=== PATIENT | female | born 1960 | race Caucasian/White ===

== ENCOUNTER 2024-12-24 10:49 | Outpatient (OUT) | payer MEDICARE, SELFPAY ==
--- OUTSIDE RECORDS SUMMARY | 2024-12-24 10:52 | XMS_ITS | Clinical Summary ---
Author Organization [facility] Address [address] [place] [address] Care Team Providers Care Director Of Counterintelligence Name Role Phone Darling Gannon MD Primary Care Provider [phone] Vanessa Yip MD Unavailable [phone] Darling Gannon MD Unavailable Allergies Active AllergyReactionsCriticalityNoted QjmkTaehonpxRwzjlnwkhslz65/14/2023 Other Reaction(s): Unknown PcaopGvomCto50/14/2023LevofloxacinGI sowytwmqpqqBqzicm31/07/2025 Medications MedicationSigDispense QuantityRefillsLast FilledStart DateEnd DateStatus aspirin 81 MG EC tablet 1 (one) time each day at the same time.Active nitroglycerin (Nitrostat) 0.4 MG SL tablet as directed Sublingual as neededActive ezetimibe (Zetia) 10 MG tablet Indications:Mixed hyperlipidemiaTake 1 tablet (10 mg) by mouth in the morning. 90 tablet 4Active famotidine (Pepcid) 20 MG tablet Indications:LPRD (laryngopharyngeal reflux disease)Take 1 tablet (20 mg) by mouth at bedtime 100 tablet 4Active Cjdyvgu-Qqtwzcxiswx-Gtzdqraatt (Breztri Aerosphere) 160-9-4.8 MCG/ACT aerosol Indications:Chronic obstructive pulmonary disease, unspecified COPD type (HCC) Inhale 2 puffs in the morning and 2 puffs before bedtime. 10.7 g 5Active amLODIPine (Norvasc) 2.5 MG tablet Indications:Primary hypertensionTake 1 tablet (2.5 mg) by mouth Daily 100 tablet 5Active triamcinolone (Kenalog) 0.1 % cream Indications:Eczema, unspecified typeApply topically in the morning and before bedtime. Apply to affected area 1-2 times daily as needed. 15 g 5Active pantoprazole (ProtoNix) 40 MG EC tablet Indications:Gastroesophageal reflux disease without esophagitisTAKE 1 TABLET (40 MG) BY MOUTH IN THE MORNING. TAKE BEFORE MEALS. 100 tablet 5Active ALPRAZolam (Xanax) 0.5 MG tablet Indications:Primary insomniaTake 1 tablet (0.5 mg) by mouth as needed at bedtime for anxiety 90 tablet 515Active traZODone (Desyrel) 150 MG tablet Indications:Insomnia associated with menopauseTAKE 1.5 TABLETS (225 MG) BY MOUTH AT BEDTIME 135 tablet 5Active Active Problems ProblemNoted DateDiagnosed DateStatin augjapfxsog18/07/6992Lizbjtx95/12/2024 Jpphaode32/12/2024outine general medical examination at health care facility 07/29/2023 Assessment & Plan (07/26/2024 2:44 PM EDT): Colonoscopy every 10 years or Cologuard every 3 years ages 50-75 Flu Vaccine yearly Pneumovax and Prevnar Mammo yearly for women and PSA yearly for men Labs/Screening yearly to rule out Diabetes, Chronic Kidney disease and liver disease Hepatitis Screen forat risk populations Shingles vaccine after65 if indicated Tetanus Vaccine every 10 years Lipids yearly under the age of 75 If Smoking history: one time CT scan of chest and Ultrasound of Aorta to screen for Anuerysm Assessment & Plan (07/29/2023 2:31 PM EDT): Colonoscopy every 10 years or Cologuard every 3 years ages 50-75 Flu Vaccine yearly Pneumovax and Prevnar Mammo yearly for women and PSA yearly for men Labs/Screening yearly to rule out Diabetes, Chronic Kidney disease and liver disease Hepatitis Screen forat risk populations Shingles vaccine after65 if indicated Tetanus Vaccine every 10 years Lipids yearly under the age of 75 If Smoking history: one time CT scan of chest and Ultrasound of Aorta to screen for Anuerysm Atherosclerosis of aorta07/29/2023 Assessment & Plan (07/29/2023 2:31 PM EDT): Found on imaging, no current complaints LPRD (laryngopharyngeal reflux disease)04/23/2023Throat pain in adult03/31/2023 Assessment & Plan (03/31/2023 2:52 PM EST): Does have severe reflux Refer to ENT probably needs laryngoscopy Age related tvdlgcbxanpf95/31/7830Wnthuya41/31/2023 Assessment & Plan (07/26/2024 2:43 PM EDT): Patient's Medicine is effective at controlling symptoms at current dose and frequency. PDMP reviewed with no evidence of overuse and abuse D/W patient to avoid use of benzodiazepines when consuming alcohol Advised against operating heavy machinery and driving long distances while on medicines. Wewjjtazrwhw69/31/2023Elevated liver fkxnqzv7007/10/2022 Assessment & Plan (07/26/2024 2:50 PM EDT): Recheck next year Was 46 last year Consider US Fatty liver07/10/2022astroesophageal reflux disease without esophagitis 07/10/2022eneralized kdybwahbomtcgn33/31/2023History of non-ST elevation myocardial infarction (NSTEMI)07/10/2022Impaired fasting lkwgimr3407/10/2022Mixed yxydqibzdcwsbk69/31/2023 Assessment & Plan (07/26/2024 2:43 PM EDT): This is a chronic medical condition that is stable since last assessment. No changes in treatment are suggested at this time. Continue Current meds. Nonalcoholic steatohepatitis (REEDER)07/10/2022ain in female genitalia on xqxtvaevzuj64/31/2023rimary damoimbpbjtg96/31/2023 Assessment & Plan (07/26/2024 2:43 PM EDT): Our specific goals, for your hypertension, is to keep your blood pressure less than 140/90, and theimportance of weight control. We made recommendations on how to control your blood pressure, and minimize your risk of these copmplications. We also discussed your current barriers to a healthy living and importance of healthy diet and exercise. Prior to your visit today we have reviewed your chart and formed a plan to assist with providing you the best possible care. We reviewed the possible complications of hypertension including, stroke, heart failure and kidney impairment. In addition, we discussed your medications, the importance of taking them as prescribed. DASH diet handouts Assessment & Plan (01/26/2024 2:34 PM EST): Our specific goals, for your hypertension, is to keep your blood pressure less than 140/90, and theimportance of weight control. We made recommendations on how to control your blood pressure, and minimize your risk of these copmplications. We also discussed your current barriers to a healthy living and importance of healthy diet and exercise. Prior to your visit today we have reviewed your chart and formed a plan to assist with providing you the best possible care. We reviewed the possible complications of hypertension including, stroke, heart failure and kidney impairment. In addition, we discussed your medications, the importance of taking them as prescribed. DASH diet handouts Primary /31/2023 Assessment & Plan (03/31/2023 2:46 PM EST): Patient's Medicine is effective at controlling symptoms at current dose and frequency. PDMP reviewed with no evidence of overuse and abuse D/W patient to avoid use of benzodiazepines when consuming alcohol Advised against operating heavy machinery and driving long distances while on medicines. Assessment & Plan (11/26/2022 1:35 PM EDT): Patient's Medicine is effective at controlling symptoms at current dose and frequency. PDMP reviewed with no evidence of overuse and abuse D/W patient to avoid use of benzodiazepines when consuming alcohol Advised against operating heavy machinery and driving long distances while on medicines. Sensorineural hearing loss, asveyxonr45/31/2023hronic kidney disease, stage 3a 07/10/2022 Assessment & Plan (03/31/2023 2:46 PM EST): Increase fluids and repeat labs Status post fdaqmhazfzig45/31/2023Vaginal sqkizjs5207/10/20223370Ctitcyjx99/11/2023 Ankle swelling, right02/20/20220890Pzfcywjlm67/11/2023ack pain02/20/2022hronic jdpwuwdg70/11/2023hronic obstructive pulmonary disease, mbepgvyxjfm65/11/2023 Assessment & Plan (07/29/2023 2:31 PM EDT): This is a chronic medical condition that is stable since last assessment. No changes in treatment are suggested at this time. Continue Current meds. Assessment & Plan (03/31/2023 2:46 PM EST): Uses Breztri Ccmgylgokb82/11/3207Uvdpkz84/11/2023Hearing loss02/20/2022 Overview (03/31/2023): bilat hearing aids Uhyffqfv87/11/2023Sleep apnea02/20/2022 Overview (03/31/2023): does not wear cpap Lnydiwjvy64/11/2023Visual /11/2023Liver jusjqyi6902/20/2022cute coronary ombidrls64/21/2021 Overview (03/31/2023): Added automatically from request for surgery [id number] Contusion to heart08/30/2020Heart tjrklc5108/29/2020ltered mental status 09/19/20129006Xmwzllhzjbgkdos54/10/2013 Encounters DateTypeDepartmentCare BnzuBftcnefqeeu34/15/2025Telephone [facility] [address] [place] [phone] Darling Gannon MD 11/15/2024Refill [facility] [address] [place] [phone] Karen Hightower LPN Insomnia associated with xngenhwpj53/22/2025Refill [facility] [address] [place] [address] Yaneli Neal PA Primary insomniafrom Last 3 Months Immunizations ImmunizationAdministration DatesNext DuePneumococcal Conjugate PCV Family History Medical HistoryRelationNameCommentsHemochromatosisFatherHypertensionMotherMother RelationNameStatusCommentsBrother1 brotherFatherDeceasedMaternal Grandfather DeceasedMotherMotherAlivePaternal GrandmotherDeceasedSister1 sister Social History Tobacco UseTypesPacks/DayYears UsedDateSmoking Tobacco: FormerCigarettes0.35.2 Quit: 02/10/1986Smokeless Tobacco: Never Tobacco Cessation:Counseling Given: Not Answered Comments:Former smoker x 15 years Alcohol UseStandard Drinks/WeekCommentsNot Currently0 (1 standard drink = 0.6 oz pure alcohol)occasional alcohol use, drinks icldR2409 Health LiteracyAnswerDate RecordedHow often do you need to have someone help you when you read instructions, pamphlets, or other written material from your doctor or pharmacy? Never07/19/2024Humiliation, Afraid, Rape, and Kick questionnaireAnswerDate RecordedWithin the last year, have you been afraid of your partner or ex-partner?No07/19/2024Within the last year, have you been humiliated or emotionally abused in other ways by your partner or ex-partner?Patient declined 07/19/2024Within the last year, have you been kicked, hit, slapped, or otherwise physically hurt by your partner or ex-partner?No07/19/2024Within the last year, have you been raped or forced to have any kind of sexual activity by your part ner or ex-partner?No07/19/2024Social Connection and Isolation PanelAnswerDate RecordedIn a typical week, how many times do you talk on the phone with family, friends, or neighbors?Patient fpduhtpi29/09/2025How often do you get together with friends or relatives?Once a week07/19/2024How often do you attend christian or taoist services?Patient tyefkhsf57/09/2025Do you belong to any clubs or organizations such as christian groups, unions, fraternal or athletic groups, or school groups?Patient tdiamlis92/09/2025How often do you attend meetings of the clubs or organizations you belong to?Patient nldkoing73/09/2025re you , , , , never , or living with a partner? 07/19/2024UDIT-CAnswerDate RecordedQ1: How often do you have a drink containing alcohol?Monthly or less07/19/2024Q2: How many drinks containing alcohol do you have on a typical day when you are drinking?1 or Q3: How often do you have six or more drinks on one occasion?Never07/19/2024Overall Financial Resource Strain (CARDIA)AnswerDate RecordedHow hard is it for you to pay for the very basics like food, housing, medical care, and heating?Not hard at all 07/19/2024PHQ-2AnswerDate RecordedPatient Health Questionnaire-2 Score0 07/19/2024[facility] - Occupational Stress QuestionnaireAnswerDate RecordedDo you feel stress - tense, restless, nervous, or anxious, or unable to sleep at night because yourmind is troubled all the time - these days?Patient /09/2025Exercise Vital SignAnswerDate RecordedOn average, how many days per week do you engage in moderate to strenuous exercise (like a brisk walk)?6 days07/19/2024On average, how many minutes do you engage in exercise at this level?60 min07/19/2024Hunger Vital SignAnswerDate RecordedWithin the past 12 months, you worried that your food would run out before you got the money to buymore.Never true07/19/2024Within the past 12 months, the food you bought just didn't last and you didn't have money to get more.Never true07/19/2024PRAPARE - TransportationAnswerDate RecordedIn the past 12 months, has lack of transportation kept you from medical appointments or from getting medications?No07/19/2024In the past 12 months, has lack of transportation kept you from meetings, work, or from getting things needed for daily living?No07/19/2024Housing Stability Vital SignAnswerDate RecordedIn the last 12 months, was there a time when you were not able to pay the mortgage or rent on time?Patient xrkobiz9611/25/2022In the last 12 months, how many places have you lived?110In the last 12 months, was there a time when you did not have a steady place to sleep or slept in ashelter (including now)?No11/25/2022Housing Stability Vital SignAnswerDate RecordedIn the last 12 months, was there a time when you were not able to pay the mortgage or rent on time?No07/19/2024In the past 12 months, how many times have you moved where you were living?t any time in the past 12 months, were you homeless or living in a longterm (including now)?No07/19/2024CommentsUnknownSex and Gender InformationValueDate RecordedSex Assigned at WeqbeIfjutw11/03/2023 3:09 PM EDTLegal BzmTulvrm06/15/2023 8:23 PM EDTGender KhkkmepuEpzwgp05/03/2023 3:09 PM EDTSexual OrientationNot on file Last Filed Vital Signs Vital SignReadingTime TakenCommentsBlood Nlthuhhz246/70007/26/2024 2:36 PM EDT Yxpiu203107/26/2024 2:36 PM GASPiamfslidse68.9 ??C (100.2 ??F)02/16/2024 2:43 PM ESTRespiratory Owyf476702/16/2024 2:43 PM ESTOxygen Yvekrggxin75%07/26/2024 2:36 PM EDTInhaled Oxygen Concentration--Bewsol20.7 kg (169 lb)07/26/2024 2:36 PM EDT Ybyzik760.3 cm (5' 9 )07/26/2024 2:36 PM EDTBody Mass Index24.9607/26/2024 2:36 PM EDT Plan of Treatment DateTypeDepartmentCare Team (Latest Contact Info)Cgnkuprxjav37/12/2025 11:00 AM ESTOffice Visit [facility] [address] [place] [phone] Yaneli Neal, PA [address] [facility] [address] [place] [address] Health MaintenanceDue DateLast DoneCommentsCT Actqzgentuzn92/01/1961FIT-DNA 1960FIT1960FOBT1960 8298Yywjusugzirod65/01/1961neumococcal Vaccine: Pediatrics (0 to 5 Years) and At-Risk Patients (6 to 64 Years) (2 of 2 - PPSV23, PCV20, or PCV21)Mammogram/, 10/03/2023, 08/23/2022, Additional history existsCOVID-19 Vaccine (2024- season)512/02/2022, 02/25/2021, 08/09/2020Influenza Vaccine (#1) 2024Medicare Annual Wellness (AWV)606/, 07/29/2023, 06/14/20228945Fiwkilbecbe31/12/178951/01/2022, 01/21/2022, 01/21/2022, Additional history existsColorectal Cancer Blocowllo24/12/2032ervical Cancer Screening DiscontinuedHPV/NobntqBwsmtrryhdmb45/23/2022ap SmearDiscontinued Procedures Procedure NamePriorityDate/TimeAssociated DiagnosisCommentsCOLONOSCOPYRoutine 01/21/2022 12:00 PM EST THINPREP AND GFRMibhaex06/23/2022 12:00 PM EDT BI MAMMOGRAM SCREENING TOMOSYNTHESIS LXXJAYJYFWwvzrwh06/07/2021 from Last 3 Months or Most Recently Relevant to Health Maintenance Results * Colonoscopy (01/21/2022 12:00 PM EST)Anatomical RegionLateralityModality EndoscopySpecimen (Source)Anatomical Location / LateralityCollection Method / VolumeCollection TimeReceived Time01/21/2022 12:00 PM EST Narrative 01/21/2022 12:00 PM EST PERFORMED AT [facility] LOCATION:[id number] diverticulosis Procedure Note CONVERSION, GENERIC - 06/26/2022 PERFORMED AT [facility] LOCATION:[id number] diverticulosis Authorizing ProviderResult TypeResult StatusDarling Gannon MDENDOSCOPY PROCEDURE ORDERABLESFinal Result * THINPREP AND HPV (11/02/2021 12:00 PM EDT)ComponentValueRef RangeTest Method Analysis TimePerformed AtPathologist SignaturePAP RESULTSNEGECW NONXML LABSHPV NEGECW NONXML LABSSpecimen (Source)Anatomical Location / LateralityCollection Method / VolumeCollection TimeReceived Time11/02/2021 12:00 PM EDT Narrative Authorizing ProviderResult TypeResult StatusDarling Gannon MDECW LABSFinal Result Performing OrganizationAddressCity/State/ZIP CodePhone Number [facility] NONXML LABS * Bilateral screening mammogram with tomosynthesis (11/16/2020)Anatomical Region LateralityModalityBreastBilateralMammographySpecimen (Source)Anatomical Location / LateralityCollection Method / VolumeCollection TimeReceived Time Narrative 11/16/2020 12:00 AM EDT PERFORMED AT [facility] LOCATION:[place] [address] Patient: ? COLT SIMON N. ? Exam Date: ? 11/16/2020 : ? 1960 ?Gender:F ? Ordering : ? DR. HILTON LIRIANO . ? Admission #: ? [id number] Family : ? DR DARLING GANNON M.D. ? Order #: ? [id number] ? CLICK HERE TO VIEW EXAM RADIOLOGY REPORT PROCEDURE: ? MAMMOGRAM SCREENING 3D BILATERAL CAD COMPARISON: ? MG MAMM SCREEN RANDI W CAD 11/10/2018. ??MG MAMM SCREEN RANDI W CAD 09/16/2017. INDICATIONS: ? Screening mammography Calculator Name ? NCI Breast Cancer Risk Assessment Tool 5 Year Breast Cancer Risk ? 1.20% Lifetime Breast Cancer Risk ? 6.00% Personal Breast Cancer ?No Personal Ovarian Cancer ? No Treatments ? None Family Cancers ? Cousin-maternal with breast cancer at age 53. LOCATION: ? [facility] BREAST COMPOSITION: ? Scattered areas fibroglandular density. FINDINGS: DIAGNOSTIC CATEGORY 1--NEGATIVE ASSESSMENT. RIGHT BREAST: ??No significant suspicious finding. ??No significant change has occurred. LEFT BREAST: ??No significant suspicious finding. ??No significant change has occurred. RECOMMENDATIONS: ROUTINE MAMMOGRAM AND CLINICAL EVALUATION IN 12 MONTHS. PLEASE NOTE: ??A NORMAL MAMMOGRAM DOES NOT EXCLUDE THE POSSIBILITY OF BREAST CANCER. ??A CLINICALLY SUSPICIOUS PALPABLE LUMP SHOULD BE BIOPSIED. Dictated by: Guille Orozco M.D. on 11/17/2020 at 14:50 Approved by: Guille Orozco M.D. on 11/17/2020 at 14:52 Procedure Note CONVERSION, GENERIC - 08/16/2022 PERFORMED AT [facility] LOCATION:[place] [address] Patient: COLT Berger Exam Date: 11/16/2020 : 1960 Gender:F Ordering : DR. HILTON LIRIANO . Admission #: [id number] Family : DR DARLING GANNON M.D. Order #: [id number] CLICK HERE TO VIEW EXAM RADIOLOGY REPORT PROCEDURE: MAMMOGRAM SCREENING 3D BILATERAL CAD COMPARISON: MG MAMM SCREEN RANDI W CAD 11/10/2018. MG MAMM SCREEN RANDI W CAD 09/16/2017. INDICATIONS: Screening mammography Calculator Name NCI Breast Cancer Risk Assessment Tool 5 Year Breast Cancer Risk 1.20% Lifetime Breast Cancer Risk 6.00% Personal Breast Cancer No Personal Ovarian Cancer No Treatments None Family Cancers Cousin-maternal with breast cancer at age 53. LOCATION: [facility] BREAST COMPOSITION: Scattered areas fibroglandular density. FINDINGS: DIAGNOSTIC CATEGORY 1--NEGATIVE ASSESSMENT. RIGHT BREAST: No significant suspicious finding. No significant changehas occurred. LEFT BREAST: No significant suspicious finding. No significant changehas occurred. RECOMMENDATIONS: ROUTINE MAMMOGRAM AND CLINICAL EVALUATION IN 12 MONTHS. PLEASE NOTE: A NORMAL MAMMOGRAM DOES NOT EXCLUDE THE POSSIBILITY OFBREAST CANCER. A CLINICALLY SUSPICIOUS PALPABLE LUMP SHOULD BE BIOPSIED. Dictated by: Guille Orozco M.D. on 11/17/2020 at 14:50 Approved by: Guille Orozco M.D. on 11/17/2020 at 14:52 Authorizing ProviderResult TypeResult StatusDarling Gannon MDIMOrestes BI PROCEDURES Final Result from Last 3 Months or Most Recently Relevant to Health Maintenance Insurance Care Teams Team MemberRelationshipSpecialtyStart DateEnd Date Darling Gannon MD [address] [address] P[facility] - GeneralFamily [facility]06/18/22 Darling Gannon MD 112 [facility] [address] [place] [address] PCP - Marito VALENTIN02/10/23 Vanessa Yip MD [address] [address] Family Medicine06/18/22
--- OUTSIDE RECORDS SUMMARY | 2024-12-24 10:52 | XMS_ITS | Clinical Summary ---
Author Organization [facility] Address [id number] [address] [place] [address] Care Team Providers Care Director Product Management Name Role Phone Darling Adams MD Primary Care Provider [phone] Allergies Active AllergyReactionsCriticalityNoted DateCommentsLatexOther (See Comments) 09/11/2020 blisters Medications MedicationSigDispense QuantityRefillsLast FilledStart DateEnd DateStatus clonazePAM (KlonoPIN) 0.5 mg tablet Take by mouth nightly. Active amLODIPine (NORVASC) 2.5 mg tablet Take 1 tablet (2.5 mg total) by mouth daily. 30 tablet ctive nitroglycerin (NITROSTAT) 0.[address] 1 tablet (0.4 mg total) under the tongue as needed for chest pain.Active UNABLE TO FIND Take 1,000 mcg by mouth daily. CromiumActive magnesium oxide (MAGOX) 400 mg tablet Take 1 tablet (400 mg total) by mouth in the morning.Active pantoprazole (PROTONIX) 40 mg EC tablet Take 1 tablet (40 mg total) by mouth in the morning. 30 tablet ctive ezetimibe (ZETIA) 10 mg tablet Indications:Mixed hyperlipidemiaTake 1 tablet (10 mg total) by mouth in the morning. 90 tablet ctive Active Problems ProblemNoted DateDiagnosed WunySmixfpvz74/11/2023nkle swelling, right02/20/2022 Rbzahag3602/20/20225251Exokfvzlb02/11/2023ack pain01/11/2023Chronic headache 01/11/2023COPD (chronic obstructive pulmonary disease)3Depression 02/20/20226460Usbmct40/11/2023Hearing loss02/20/2022 Overview (02/20/2022): bilat hearing aids Liver yrgptzn9602/20/20229023Vgwegefw35/11/2023Sleep apnea02/20/2022 Overview (02/20/2022): does not wear cpap Jxizihgzg72/11/2023Visual dbmoluqxwe54/11/2023Essential ahkksycevydv33/04/2021 Mixed mfbfufoodkrsel47/04/2021ontusion to heart08/30/2020cute coronary xsstkfpo09/21/2021 Overview (08/30/2020): Added automatically from request for surgery [id number] Heart keihuf8408/29/2020 Immunizations ImmunizationAdministration DatesNext DuePneumococcal Conjugate 13-Valent 12/04/2015 Family History Medical HistoryRelationNameCommentsBreast cancerCousinCancerCousin HemochromatosisFatherdied 2015HyperlipidemiaMotherRosaHypertensionMotherRosa RelationNameStatusCommentsCousinAliveFatherDeceasedMotherRosaAlive Social History Tobacco UseTypesPacks/DayYears UsedDateSmoking Tobacco: FormerCigarettes Smokeless Tobacco: Never Tobacco Cessation:Counseling Given: Not Answered Comments:Smoked a few cigarette's occasionally in 20's Alcohol UseStandard Drinks/WeekCommentsYes0 (1 standard drink = 0.6 oz pure alcohol)occasionallyChildcareAnswerDate EtluwlohHsaryalzqBwdtsaw01/12/2019 EmploymentAnswerDate VbymchtlUvzinnjhwzFibmjgt05/12/2019Hunger ScreeningAnswer Date RecordedWithin the past 12 months we worried whether our food would run out before we got money to buy more.Never True03/20/2022Within the past 12 months the food we bought just didn't last and we didn't have money to get more.Never True03/20/2022CommentsNoSex and Gender InformationValueDate RecordedSex Assigned at BirthNot on fileLegal XcxIbnkcm46/06/2015 11:29 AM EDTGender IdentityNot on fileSexual OrientationNot on file Last Filed Vital Signs Vital SignReadingTime TakenCommentsBlood Bdcuqsxe353/72003/20/2022 1:56 PM EST Ixeiq985603/20/2022 1:56 PM YGJXttmihgtolo11.6 ??C (97.8 ??F)02/20/2022 2:17 PM ESTRespiratory Arqr991403/24/2021 9:35 AM ESTOxygen Fdikmqzfdq53%03/20/2022 1:56 PM ESTInhaled Oxygen Concentration--Amnevt72.4 kg (192 lb 9.6 oz)03/20/2022 1:56 PM KXISmzobw203.8 cm (5' 10 )03/20/2022 1:56 PM ESTBody Mass Index27.64 03/20/2022 1:56 PM EST Plan of Treatment DateTypeDepartmentCare Team (Latest Contact Info)Qomwxffrljz32/21/2025 9:30 AM ESTOffice Visit [facility] [address] [place] [phone] Radha Chen, PLANER FEEDER-TRANSITION OF CARE SPECIALIST [address] [place] [address] Health MaintenanceDue DateLast DoneCommentsStatin Use: Lbjvdkvbrqoqsl59/01/1961 Depression Yrpsscjgz21/01/1973Tobacco Qdqyqqyrj26/01/1973DTaP,Tdap and Td Vaccines (1 - Tdap)08/11/1979Pap Smear1981Zoster (Shingles) Vaccine (1 of 2)2010RSV ( or age 60+ yrs) (1 - Risk 60-74 years 1-dose series) 2020dult BMI Vygciguse45OVID-19 Vaccine ( - 2024- season), 10/24/2021, 02/25/2021, Additional history exists Influenza Hqaxarp7210/11/20245837Jxfhelobpcj63, 01/21/2022, 01/21/2022, Additional history exists Goals GoalPatient Goal TypeAssociated ProblemsRecent ProgressPatient-Stated?Author DC Asad English RN Note: Evaluation of progress towards goal: Patient to discharge home with self care Medical Devices Not on file Procedures Procedure NamePriorityDate/TimeAssociated DiagnosisCommentsPROVATION COLONOSCOPY Gqwtfcq3401/21/2022 7:37 AM EST from Last 3 Months or Most Recently Relevant to Health Maintenance Results * Colonoscopy Report (01/21/2022 7:37 AM EST)Specimen (Source)Anatomical Location / LateralityCollection Method / VolumeCollection TimeReceived Time Narrative SYSTEMGENERATED, DOCUMENTATION - 01/21/2022 7:37 AM EST This order has been auto-finalized for image and report archival in PACs. *For full report details, please reach out to your physician. ??Effective 06/27/20 this image will be visible to you in [employer].* Authorizing ProviderResult TypeResult StatusMichael E Grillis DOIMG OR IMG ORDERABLESFinal Result from Last 3 Months or Most Recently Relevant to Health Maintenance Insurance * Guarantor: Milena Philip TypeRelation to PatientDate of BirthPhone Billing AddressThird Green Party UciyuhhwfPhqd56/01/1961 [address] [address] * Guarantor: Christy PhilipAccomckay TypeRelation to PatientDate of BirthPhone Billing AddressWorkers AkmzGpor01/01/1961 [address] [address] Advance Directives * Full Code (Latest Code Status on File) Date ActivatedDate InactivatedComments08/30/2020 2:21 AM08/31/2020 5:52 PM Care Teams Team MemberRelationshipSpecialtyStart DateEnd Date Darling Adams MD [facility] [place] [address] PCP - GeneralFamily Medicine08/31/20
--- OUTSIDE RECORDS SUMMARY | 2024-12-24 10:52 | XMS_ITS | Clinical Summary ---
Author Organization [facility] Address [address], [address] [place] [address] Care Team Providers Care [facility] Former Name Role Phone Darling Adams MD Primary Care Provider [phone] Allergies Active AllergyReactionsCriticalityNoted DjwnFznfustjVfhfcilwgjqo40/14/2023 Other Reaction(s): Unknown LatexOther (See Comments)09/11/2020 blisters Medications MedicationSigDispense QuantityRefillsLast FilledStart DateEnd DateStatus amLODIPine (NORVASC) 2.5 MG tablet Take 1 tablet by mouth daily09/01/2020ctive clonazePAM (KLONOPIN) 0.5 MG tablet Take by mouth nightly.Active ezetimibe (ZETIA) 10 MG tablet Take 1 tablet by mouth daily03/20/2021ctive pantoprazole (PROTONIX) 40 MG tablet pantoprazole 40 mg tablet,delayed release take 1 tablet by mouth once daily01/28/2022ctive traZODone (DESYREL) 150 MG tablet take 1 tablet by mouth at apnchyw4101/19/2022ctive Rhmuqlm-Qanxthclbpd-Qpghiqbvtl (BREZTRI AEROSPHERE) 160-9-4.8 MCG/ACT AERO Inhale into the lungsActive PREMARIN 0.625 MG/GM CREA vaginal cream insert 1 applicatorful vaginally three times a week 30 g 11/25/2023ctive Active Problems ProblemNoted DateDiagnosed DateAltered mental dlmjat7209/19/2012Gastroenteritis 09/19/2012 Family History Medical HistoryRelationNameCommentsBreast CancerDaughterRelationNameStatus CommentsDaughter Social History Tobacco UseTypesPacks/DayYears UsedDateSmoking Tobacco: Never Tobacco Cessation:Counseling Given: Not Answered Alcohol UseStandard Drinks/WeekCommentsNo0 (1 standard drink = 0.6 oz pure alcohol)sociallyCommentsNoSex and Gender InformationValueDate Recorded Sex Assigned at BirthNot on fileLegal YmsKhlprw17/06/2013 11:16 AM EDTGender IdentityNot on fileSexual OrientationNot on file Last Filed Vital Signs Vital SignReadingTime TakenCommentsBlood Dhdhepts276/7811 3:27 PM EST Ahudj054708/15/2023 10:10 AM RSJNdldjuwubfn39.4 ??C (97.5 ??F)08/15/2023 10:10 AM EDTRespiratory Gegw647708/15/2023 10:10 AM EDTOxygen Negiagadqa07%08/15/2023 10:10 AM EDTInhaled Oxygen Concentration--Pkgjxw89 kg (183 lb)12/23/2023 3:27 PM EST Qtvylr171.8 cm (5' 10 )12/23/2023 3:27 PM ESTBody Mass Index26.26102/21/2023 3:27 PM EST Plan of Treatment DateTypeDepartmentCare Team (Latest Contact Info)Lomjphvyhil33/11/2026 3:45 PM ESTOffice Visit [facility] Part of [address] [place] [address] Gin Huston, DO [address] [place] [address] [address] [id number] Flibph4304/01/2025 11:30 AM ESTAppointment [facility] [address] [place], [place] [address] SELF REFFERALHealth MaintenanceDue DateLast DoneCommentsDepression Screen 1972HIV wwowvg4008/11/1975Hepatitis C sxlfhv2908/10/1978DTaP/Tdap/Td vaccine (1 - Tdap)08/11/1979Diabetes ajoswm0508/11/19954827Lrxwry09/01/2001Colonoscopy 2005Colorectal Cancer Vlnvbm5408/10/2005FIT/FOBT: Average risk2005 Fecal-DNA (Cologuard): Average risk2005Sigmoidoscopy/CT colonography 2005Shingles vaccine (1 of 2)2010Pneumococcal 50+ years Vaccine (2 of 2 - PCV20 or PCV21)Annual Wellness Visit (Medicare Advantage)02/11/2024Flu vaccine (#1)5Breast cancer rmjrkd8710/02/2024 10/03/2023, 08/23/2022, 11/16/2020, Additional history existsCOVID-19 Vaccine ( - 2024- season)5103/13/2022, 10/24/2021, 02/25/2021, Additional history existsRespiratory Syncytial Virus (RSV) or age 60 yrs+ (1 - 1- dose 75+ series)08/11/2035Pneumococcal 0-49 years GskggerYwkoahjhzcsv37/24/2016 Hepatitis A vaccineAged OutNo longer eligible based on patient's age to complete this topicHepatitis B vaccineAged OutNo longer eligible based on patient's age to complete this topicHib vaccineAged OutNo longer eligible based on patient's age to complete this topicMeningococcal (ACWY) vaccineAged OutNo longer eligible based on patient's age to complete this topicMeningococcal B vaccineAged OutNo longer eligible based on patient's age to complete this topicPolio vaccineAged OutNo longer eligible based on patient's age to complete this topic Procedures Procedure NamePriorityDate/TimeAssociated DiagnosisCommentsMAM ROQUE DIGITAL SCREEN SELF REFERRAL W OR WO CAD SRWHJRFWCSphnnsn35/23/2024 10:58 AM EDT Visit for screening mammogram from Last 3 Months or Most Recently Relevant to Health Maintenance Results * CARIN ROQUE DIGITAL SCREEN SELF REFERRAL W OR WO CAD BILATERAL (10/03/2023 10:58 AM EDT)Anatomical RegionLateralityModalityBreastBilateralMammographySpecimen (Source)Anatomical Location / LateralityCollection Method / VolumeCollection TimeReceived Time10/03/2023 11:21 AM EDT Impressions 10/03/2023 11:21 AM EDT No mammographic evidence of malignancy BIRADS: BIRADS - CATEGORY 1 Negative. ??Normal interval follow-up is recommended in 12 months. OVERALL ASSESSMENT - NEGATIVE A letter of notification will be sent to the patient regarding the results. The [employer] recommends annual mammograms for women 40 years and older. Narrative 10/03/2023 11:21 AM EDT EXAMINATION: SCREENING DIGITAL BILATERAL MAMMOGRAM WITH TOMOSYNTHESIS, 10/03/2023 TECHNIQUE: Screening mammography of the bilateral breasts was performed with tomosynthesis. ??2D standard and 3D tomosynthesis combination imaging performed through both breasts in the MLO and CC projection. ??Computer aided detection was utilized in the interpretation of this exam. COMPARISON: August 23, 2022 HISTORY: Screening. FINDINGS: Breasts are composed of scattered fibroglandular density. ??There is no dominant mass, architectural distortion or concerning grouping of microcalcification in either breast. Authorizing ProviderResult TypeResult StatusCarmen Robel [facility] MAMMOGRAPHY ORDERABLESFinal Result from Last 3 Months or Most Recently Relevant to Health Maintenance Insurance Advance Directives * Full Code (Latest Code Status on File) Date ActivatedDate InactivatedComments04/12/2022 6:07 AM04/12/2022 2:53 PM * Full Code Date ActivatedDate InactivatedComments09/19/2012 2:42 AM09/20/2012 3:06 PM Care Teams Team MemberRelationshipSpecialtyStart DateEnd Date Darling Adams MD PCP - GeneralFamily Edhdswqd18/20/22
--- NOTE | 2024-12-24 11:45 | MM_ITS ---
Patient Name: AURORA GREGORY MR#: [id number] : 1960 Exam Date: 12/24/2024 Ordering Doctor: DR FRANKY GANNON M.D. RADIOLOGY REPORT PROCEDURE: MM TOMOSYNTHESIS SCREENING BI COMPARISON: MG MAMM RANDI SCRN W CAD DIG, 10/03/2023. MG MAMM SCREEN 3D RANDI CAD, 11/16/2020. MG MAMM SCREEN RANDI W CAD, 11/10/2018. MG MAMM SCREEN RANDI W CAD, 09/16/2017. INDICATIONS: screening Calculator Name NCI Breast Cancer Risk Assessment Tool 5 Year Breast Cancer Risk 2.80% Lifetime Breast Cancer Risk 11.10% Personal Breast Cancer No Personal Ovarian Cancer No Treatments None Family Cancers Daughter with breast cancer at age 38; Cousin-maternal with breast cancer at age 53. LOCATION: [facility] BREAST COMPOSITION: There are scattered areas of fibroglandular density. Comparison: Mammograms dating back to 2018. FINDINGS: DIAGNOSTIC CATEGORY 1--NEGATIVE. RIGHT BREAST: No significant suspicious finding. LEFT BREAST: No significant suspicious finding. RECOMMENDATIONS: ROUTINE MAMMOGRAM AND CLINICAL EVALUATION IN 12 MONTHS. Dictated by: Daryl Kaplan DO on 01/03/2025 at 09:20 Approved by: Daryl Kaplan DO on 01/03/2025 at 09:21
== END 2024-12-24 10:50 | disposition home or self-care (01) ==
LOC: MAMMO 10:49
PROVIDERS: PCP Family Medicine; Visit Provider Family Medicine
DX: Z12.31 Encounter for screening mammogram for malignant neoplasm of breast (principal); Z80.3 Family history of malignant neoplasm of breast
CPT/HCPCS: 77063; 77067